=== PATIENT | female | born 1995 | race Caucasian/White ===

== ENCOUNTER 2016-03-19 07:03 | Inpatient (IN) | payer OTHER ==
[2016-03-19] VITALS (33 sets, daily range): BP systolic 106–132; BP diastolic 59–85
[~2016-03-19] VITALS: Ht 170.2 cm; Wt 83.0 kg
[2016-03-19] MEDS ORDERED: PRENATAL TABLE1 EACH PO (07:42)
[2016-03-19] MEDS ORDERED: OMEPRAZOLE10 M1 PO (07:43)
[2016-03-19 09:27] LABS: HEMATOCRIT 31.7 % (36.0-46.0); MCHC 31.9 G/DL (30.0-36.0); MCV 81.5 FL (83-99); MEAN PLAT.VOLUME 11.4 uM^3 (9.5-12.4); PLATELET COUNT 146 K/uL (156-360); RBC DIS.WIDTH-CV 15.7 % (11.8-14.6); RBC DIS.WIDTH-SD 45.8 % (39-53); RED BLOOD COUNT 3.89 M/uL (3.80-5.20); WHITE BLOOD COUNT 5.4 K/uL (4.1-10.2)
[2016-03-19 09:42] LABS: EOSINOPHIL (%) 0.2 % (0-5); IMMATURE GRANULOCYTE (%) 0.4 % (0.0-0.7); LYMPHOCYTE COUNT 1.3 K/uL (1.0-2.8); MONOCYTE (%) 10.5 % (3-12); MONOCYTE COUNT 0.6 K/uL (0-0.8); NEUTROPHIL (%) 65.4 % (45-76); NEUTROPHIL COUNT 3.5 K/uL (1.8-6.4)
[2016-03-20 06:18] LABS: EOSINOPHIL (%) 0.3 % (0-5); HEMATOCRIT 28.7 % (36.0-46.0); IMMATURE GRANULOCYTE (%) 0.3 % (0.0-0.7); LYMPHOCYTE COUNT 1.5 K/uL (1.0-2.8); MCH 26.8 PG (29.0-34.0); MCHC 32.8 G/DL (30.0-36.0); MCV 81.8 FL (83-99); MEAN PLAT.VOLUME 11.1 uM^3 (9.5-12.4); MONOCYTE (%) 10.1 % (3-12); MONOCYTE COUNT 0.7 K/uL (0-0.8); NEUTROPHIL COUNT 4.3 K/uL (1.8-6.4); PLATELET COUNT 136 K/uL (156-360); RBC DIS.WIDTH-CV 15.6 % (11.8-14.6); RBC DIS.WIDTH-SD 45.7 % (39-53); RED BLOOD COUNT 3.51 M/uL (3.80-5.20); WHITE BLOOD COUNT 6.4 K/uL (4.1-10.2)
[2016-03-20 08:02] VITALS: BP 126/80
[2016-03-20 16:34] VITALS: BP 122/72
[2016-03-20 22:42] VITALS: BP 109/60
[2016-03-21 07:43] VITALS: BP 110/69
[2016-03-21] MEDS ORDERED: IBUPROFEN800 MG PO (09:09)
[2016-03-21] MEDS ORDERED: SLOW RELEASE I250 M1 PO (09:10)
[2016-03-21 15:17] VITALS: BP 115/69
== END 2016-03-21 16:28 | disposition home or self-care (01) | DRG 775 ==
LOC: LDRP-OP → 2WEST 07:04 → LDRP-OP 04-12 11:57
PROVIDERS: Advanced Practice Midwife
DX: O48.0 Post-term pregnancy (principal); O99.824 Streptococcus B carrier state complicating childbirth; O70.0 First degree perineal laceration during delivery; Z3A.41 41 weeks gestation of pregnancy; O99.013 Anemia complicating pregnancy, third trimester; O99.214 Obesity complicating childbirth; E66.9 Obesity, unspecified; D50.9 Iron deficiency anemia, unspecified; Z68.24 Body mass index [BMI] 24.0-24.9, adult; Z37.0 Single live birth
CPT/HCPCS: 85025; 99202; C1755; J0595; J2540; J3010